=== PATIENT | male | born 1950 | race Two or more races ===

== ENCOUNTER 2021-04-03 16:10 | Inpatient (IN) | payer OTHER ==
[~2021-04-03] VITALS: Ht 172.7 cm; Wt 86.2 kg
[2021-04-03] MEDS ORDERED: NORVASC2.5 M1 (16:18)
[2021-04-03] MEDS ORDERED: TOPROL XL25 M1 (16:18)
[2021-04-03] MEDS ORDERED: CHILDREN'S ASPI81 MG (16:19)
[2021-04-03] MEDS ORDERED: ZESTRIL2.5 MG (16:19)
[2021-04-05] MEDS ORDERED: LISINOPRIL-HCT1 EAC2 (08:22)
[2021-04-10] MEDS ORDERED: TAMS0.4C PO (15:54)
[2021-04-10] MEDS ORDERED: CIPRO500 MG PO (15:55)
== END 2021-04-10 16:03 | disposition home or self-care (01) | DRG 689 ==
LOC: ER 16:10 → SURH 04-04 13:51
PROVIDERS: ADMIT Internal Medicine; ATTEND Internal Medicine
PROC: BW21YZZ Computerized Tomography (CT Scan) of Abdomen and Pelvis using Other Contrast (ICD-10-PCS; principal; 2021-04-04)
DX: N39.0 Urinary tract infection, site not specified (principal); A41.9 Sepsis, unspecified organism; N41.0 Acute prostatitis; R33.8 Other retention of urine; K52.9 Noninfective gastroenteritis and colitis, unspecified; N13.8 Other obstructive and reflux uropathy; R31.0 Gross hematuria; D72.828 Other elevated white blood cell count; B96.29 Other Escherichia coli [E. coli] as the cause of diseases classified elsewhere; I10 Essential (primary) hypertension; E86.0 Dehydration; E87.8 Other disorders of electrolyte and fluid balance, not elsewhere classified; N40.1 Benign prostatic hyperplasia with lower urinary tract symptoms; Z20.822 Contact with and (suspected) exposure to COVID-19